=== PATIENT | female | born 1980 ===

== ENCOUNTER 2017-02-05 02:45 | Inpatient (IN) | payer OTHER ==
[~2017-02-05] VITALS: Ht 165.1 cm; Wt 91.6 kg
[2017-02-05] MEDS ORDERED: LACTATED RINGER'S 1,000 ML IV SCH (03:03)
[2017-02-05] MEDS ORDERED: DERMOPLAST 60ML BOTTLE TOP PRN (03:15)
[2017-02-05] MEDS ORDERED: PHISODERM TOP SOLN 240ML BTL TOP PRN (03:15)
[2017-02-05] MEDS ORDERED: WITCH HAZEL-GLYCERIN PAD TOP PRN (03:15)
[2017-02-05] MEDS ORDERED: LACT. RINGERS/OXYTOCIN 20UNITS 1,000 ML IV ONE (03:18)
[2017-02-05] MEDS ORDERED: LACT. RINGERS/OXYTOCIN 20UNITS 1,000 ML IV SCH ×2 (03:45→05:40)
[2017-02-05] MEDS ORDERED: PHISODERM TOP SOLN 240ML BTL TOP ONE (03:48)
[2017-02-05] MEDS ORDERED: DERMOPLAST 60ML BOTTLE TOP ONE (03:48)
[2017-02-05 04:00] LABS: Basophils # (auto) 0.1 uL; Basophils % (auto) 0.3 % (0.0-2.0); Eosinophils # (auto) 0 uL; Eosinophils % (auto) 0.2 % (0.0-7.0); Hematocrit 35.9 % (36.0-46.0); Hemoglobin 12.4 g/dL (12.2-16.2); Lymphocytes # (auto) 2.3 uL; Mean Corpuscular Hemoglobin 31.6 pg (28.0-32.0); Mean Corpuscular Hgb Conc. 34.5 g/dL (32.0-36.0); Mean Corpuscular Volume 91.4 fL (80.0-100.0); Mean Platelet Volume 7.4 fL (7.4-10.4); Monocytes # (auto) 0.6 uL; Monocytes % (auto) 3.5 % (0.0-12.0); Platelet Count (auto) 306 10^3/uL (140-450)
[2017-02-05] MEDS ORDERED: BUTORPHANOL TARTRATE 2 MG/1 ML VIAL IV PRN (04:00)
[2017-02-05 04:04] LABS: INR 0.95 (0.9-1.15); Partial Thromboplastin Time 25.8 sec (22.64-33.71); Prothrombin Time 10.3 sec (9.37-12.3)
[2017-02-05 04:16] LABS: BUN/Creatinine Ratio 13.8; Bilirubin, Total 0.4 mg/dL (0.2-1.0); Calcium 8.8 mg/dL (8.5-10.1); Potassium 3.7 mmol/L (3.5-5.1); Total Protein 7.2 g/dL (6.4-8.2)
[2017-02-05 08:00] VITALS: BP 131/82
[2017-02-05] MEDS ORDERED: ACETAMINOPHEN 325 MG TAB PO ONE ×2 (10:38→10:45)
[2017-02-05] MEDS ORDERED: IBUPROFEN 600 MG TAB PO ONE (10:45)
== END 2017-02-05 11:30 | disposition left against medical advice (07) | DRG 770 ==
LOC: OBSVTOIN 02:45 → LDRP 02:45
PROVIDERS: ADMIT Specialist; ATTEND Specialist
PROC: 10D17ZZ Extraction of Products of Conception, Retained, Via Natural or Artificial Opening (ICD-10-PCS; principal; 2017-02-05)
DX: O03.9 Complete or unspecified spontaneous abortion without complication (principal); J45.909 Unspecified asthma, uncomplicated; O99.519 Diseases of the respiratory system complicating pregnancy, unspecified trimester; Z53.21 Procedure and treatment not carried out due to patient leaving prior to being seen by health care provider; O32.1XX0 Maternal care for breech presentation, not applicable or unspecified; Z3A.00 Weeks of gestation of pregnancy not specified; Z88.0 Allergy status to penicillin; Z88.8 Allergy status to other drugs, medicaments and biological substances; Z88.6 Allergy status to analgesic agent; Z91.040 Latex allergy status; Z59.0 Homelessness; Z37.1 Single stillbirth
CPT/HCPCS: 36415; 59414; 80053; 85025; 85610; 85730; 86592; 86762; 86850; 86900; 86901; 87340; 96365; 96366; 96374; G0434; J2590